=== PATIENT | male | born 1960 | race African-American/Black ===

== ENCOUNTER 2018-04-28 04:47 | Emergency (ER) | payer SELFPAY ==
[~2018-04-28] VITALS: Ht 175.3 cm; Wt 90.7 kg
[2018-04-28 04:50] VITALS: BP 139/85
--- NOTE | 2018-04-28 04:50 | NUR ---
ED Nurse Note: Patient presents with complaints of abdominal pain x 2 days, constipation, recent ETOH abuse, hematemesis pain level 8/10 at time of RN re-assessment
[2018-04-28] MEDS ORDERED: Pantoprazole Inj IV ONE (05:00)
[2018-04-28] MEDS ORDERED: LORazepam Inj 2mg/ml 1ml IV ONE (05:00)
--- NOTE | 2018-04-28 05:16 | NUR ---
ED Nurse Note: Blood sample sent tolab.
--- NOTE | 2018-04-28 05:37 | NUR ---
ED Nurse Note: Patient reports a pain level of 8/10 in the general abdominal area. Addendum: 04/28/18 at 0537 by EVELYN ED Nurse Note: Will inform GEETHA.
[2018-04-28] MEDS ORDERED: Morphine Sulfate 4mg/ml Inj (IV USE ONLY) IVP ONE ×2 (05:45→06:45)
[2018-04-28 05:49] LABS: INR 1.3 (0.9-1.1)
[2018-04-28 05:52] LABS: ANION GAP 13 mmol/L (5-15); BLOOD UREA NITROGEN 5 mg/dL (7-18); CALCIUM 8.3 MG/DL (8.5-10.1); CARBON DIOXIDE 25 MMOL/L (21-32); CHLORIDE 101 MMOL/L (98-107); CREATININE 1.1 MG/DL (0.55-1.30); HEMATOCRIT 39.7 % (42.0-52.0); HEMOGLOBIN 13.1 G/DL (14.2-18.0); MEAN CORPUSCULAR VOLUME 93 FL (80-99); PLATELET COUNT 27 K/UL (150-450); POTASSIUM 3.8 MMOL/L (3.5-5.1); RED BLOOD COUNT 4.26 M/UL (4.70-6.10); RED CELL DISTRIBUTION WIDTH 13.4 % (11.6-14.8); SODIUM 139 MMOL/L (136-145); WHITE BLOOD COUNT 3.7 K/UL (4.8-10.8)
--- NOTE | 2018-04-28 05:59 | Emergency Room Report ---
History of Present Illness General Chief Complaint: Vomiting Source: Patient, EMS (Toby Wilson MD) Present Illness HPI 57-year-old male presents ED for evaluation. Brought in by EMS complaining of abdominal pain with nausea and vomiting. Per EMS patient has blood in his vomit. Started yesterday. Patient states he's been drinking alcohol every day for the last month. States that his son recently. States he had multiple episodes of vomiting since he tried to cut down on alcohol yesterday. Feels tremulous. Pain is sharp, 8 out of 10, nonradiating. Denies chest pain or shortness of breath. No other aggravating relieving factors. Denies any other associated symptoms (Toby Wilson MD) Allergies: Coded Allergies: No Known Allergies (Unverified , 04/28/18) Patient History Past Medical History: asthma Pertinent Family History: none Social History: Reports: alcohol use; Denies: smoking, drug use Immunizations: UTD Reviewed Nursing Documentation: PMH: Agreed; PSxH: Agreed (Toby Wilson MD) Past Medical History: see triage record Reviewed Nursing Documentation: PMH: Agreed; PSxH: Agreed (DONALD BARAHONA Nursing Documentation-PMH Hx Asthma: Yes History Of Psychiatric Problem: Yes - ETOH (Toby Wilson MD) Review of Systems All Other Systems: negative except mentioned in HPI (Toby Wilson MD) Physical Exam Vital Signs Date Time Temp Pulse Resp B/P (MAP) Pulse Ox O2 Delivery O2 Flow Rate FiO2 04/28/18 04:40 98.6 87 18 139/85 100 Room Air Sp02 EP Interpretation: reviewed, normal General Appearance: mild distress, other - tremulous Head: normocephalic, atraumatic Eyes: bilateral eye normal inspection, bilateral eye PERRL ENT: hearing grossly normal, normal pharynx, no angioedema, normal voice Neck: full range of motion, supple/symm/no masses Respiratory: chest non-tender, lungs clear, normal breath sounds, speaking full sentences Cardiovascular #1: regular rate, rhythm, no edema Cardiovascular #2: 2+ carotid (R), 2+ carotid (L), 2+ radial (R), 2+ radial (L) , 2+ dorsalis pedis (R), 2+ dorsalis pedis (L) Gastrointestinal: normal bowel sounds, soft, non-distended, no guarding, no rebound, tenderness Rectal: deferred Genitourinary: normal inspection, no CVA tenderness Musculoskeletal: back normal, gait/station normal, normal range of motion, non- tender Neurologic: alert, oriented x3, responsive, motor strength/tone normal, sensory intact, speech normal Psychiatric: judgement/insight normal, memory normal, no suicidal/homicidal ideation, no delusions, anxious Reflexes: 3+ bicep (R), 3+ bicep (L), 3+ tricep (R), 3+ tricep (L), 3+ knee (R) , 3+ knee (L) Skin: normal color, no rash, warm/dry, well hydrated Lymphatic: no adenopathy (Toby Wilson MD) Medical Decision Making Homeless Attestation I, The treating physician Dr. Barahona, has assessed and agrees that patient is medically stable for discharge to an outpatient disposition. 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 He was visibly intoxicated earlier upon arrival. He does not appear to be exhibiting any withdrawal as he jo up, was given IV fluids, Ativan, will be given information on liver disease secondary to alcohol abuse, and instructed to follow-up with his primary doctor for repeat tests of his blood counts and liver enzymes and chemistry panels. Patient was given a meal and homelessness discharge paperwork since he reported he has nowhere to go. (DONALD BARAHONA M.D) CT/MRI/US Diagnostic Results CT/MRI/US Diagnostic Results : Imaging Test Ordered: ct head Impression no acute dz (DONALD BARAHONA M.D) Last Vital Signs Date Time Temp Pulse Resp B/P (MAP) Pulse Ox O2 Delivery O2 Flow Rate FiO2 04/28/18 04:50 98.6 87 18 139/85 100 Room Air (Toby Wilson MD) Disposition: HOME, SELF-CARE Condition: Stable Referrals: NOT CHOSEN IPA/,REFERRING (PCP) Toby Wilson MD Apr 28, 2018 05:59 DONALD BARAHONA M.D Apr 28, 2018 08:27
[2018-04-28 06:02] LABS: ALANINE AMINOTRANSFERASE 43 U/L (12-78); ALBUMIN 3.1 G/DL (3.4-5.0); ALBUMIN/GLOBULIN RATIO 0.5 (1.0-2.7); ALKALINE PHOSPHATASE 164 U/L (46-116); ASPARTATE AMINO TRANSFERASE 122 U/L (15-37); BILIRUBIN,TOTAL 1.8 MG/DL (0.2-1.0)
[2018-04-28 06:13] LABS: BILIRUBIN,DIRECT 0.8 MG/DL (0.0-0.3)
--- NOTE | 2018-04-28 06:55 | NUR ---
ED Nurse Note: Patient went down for ct.
--- NOTE | 2018-04-28 07:10 | NUR ---
HAND-OFF: Report given to Natalya.
--- NOTE | 2018-04-28 08:00 | NUR ---
ED Nurse Note: Pt resting on bed with no distress. IV fluids almost done. Pt is AAO x4, and follows commands.
--- NOTE | 2018-04-28 08:10 | NUR ---
ED Nurse Note: Dr Priscilla talley for patient to have oral inatke. [employer] and juice provided.
[2018-04-28 09:00] VITALS: BP 130/79
--- NOTE | 2018-04-28 09:49 | Diagnostic Imaging Report ---
Indication: Headache Technique: Contiguous 5 mm thick transaxial imaging of the head obtained in a Siemens Sensation [address] scanner. Soft tissue and bone windows generated. Automatic Exposure Control was utilized. Total Dose length Product (DLP): 1418.[address] Dose Index Volume (CTDIvol): 70.38 mGy Comparison: none Findings: There is mild prominence of the ventricles, basal cisterns, and cerebral sulci consistent with atrophy. Mild, nonspecific, white matter hypoattenuation is noted throughout the brain consistent with chronic small vessel disease. There is no midline shift, edema, acute hemorrhage, mass effect, or abnormal extra-axial fluid collections. Bones and extra osseous soft tissues are unremarkable. Impression: No acute intracranial bleed, mass effect or edema. Mild atrophy of the brain. Nonspecific white matter hypoattenuation probably due to chronic small vessel disease. The CT scanner at [facility] is accredited by the [employer] and the scans are performed using dose optimization techniques as appropriate to a performed exam including Automatic Exposure control.
[2018-04-28 11:00] VITALS: BP 128/66
--- NOTE | 2018-04-28 11:00 | NUR ---
ED Nurse Note: Pt cleared by health care Provider for discharge. Pt refused to sign homeless DC form. DC instructions was given and explained to pt and verbalized understanding of teachings. All medical deviecs such as ID band removed. Pt is AAO x4, ambulatory and left with all personal belongings.
== END 2018-04-28 11:00 | disposition home or self-care (01) ==
LOC: EDBD 04:47 → EMR 04:59
DX: D69.6 Thrombocytopenia, unspecified (principal); K70.9 Alcoholic liver disease, unspecified; F10.10 Alcohol abuse, uncomplicated; J45.909 Unspecified asthma, uncomplicated; R51 Headache; G31.9 Degenerative disease of nervous system, unspecified
CPT/HCPCS: 36415; 70450; 80053; 82248; 83690; 85007; 85025; 85610; 85730; 86850; 86900; 86901; 96361; 96374; 96375; 96376; 99284; C9113; G0480; J2270; J2405; 80329